=== PATIENT | female | born 1940 | race Caucasian/White ===

== ENCOUNTER 2025-05-21 11:37 | Emergency (ER) | payer MEDICARE | END 2025-05-21 14:45 | disposition home or self-care (01) | LOC: ERS 11:37 | DX: S00.83XA Contusion of other part of head, initial encounter (principal); I50.9 Heart failure, unspecified; E11.9 Type 2 diabetes mellitus without complications; Z55.6 Problems related to health literacy; W18.30XA Fall on same level, unspecified, initial encounter | CPT/HCPCS: 70450; 70486; 72125; 93005 ==

== ENCOUNTER 2025-07-06 17:05 | Inpatient (IN) | payer MEDICARE ==
[2025-07-06 18:36] LABS: ALT (SGPT) 13 U/L (Less than 34); AST (SGOT) 46 U/L (11-34); Albumin 3.2 g/dL (3.1-4.5); Alkaline Phosphatase 87 U/L (40-110); Anion Gap 16 mmol/L (10-20); BUN (Urea Nitrogen) 38 mg/dL (9.8-20.1); Bilirubin, Total 0.2 mg/dL (0.3-1.2); Calc. Creatinine Clearance 0 mL/min (70-130); Calcium 8.8 mg/dL (7.8-10.44); Carbon Dioxide 27 mmol/L (23-31); Chloride 102 mmol/L (98-107); Globulin 3.5 g/dL (2.4-3.5); Glucose 206 mg/dL (83-110); Potassium 4.7 mmol/L (3.5-5.1); Sodium 140 mmol/L (136-145)
[2025-07-06] MEDS ORDERED: Nitroglycerin 2% Ointment 1 INCH/1 GM Packet ONE (19:02)
[2025-07-06] MEDS ORDERED: Aspirin Chewable 81 MG TAB ONE (19:02)
[2025-07-06 19:17] LABS: #Basophils 0.03 10x3/uL (0.0-0.2); #Eosinophils 0.08 10x3/uL (0.0-0.7); #Monocytes 1.25 10x3/uL (0.11-0.59); #Neutrophils 8.05 10x3/uL (1.40-6.50); %Basophils 0.3 % (0.0-1.0); %Eosinophils 0.7 % (0.0-10.0); %Lymphocytes 15.9 % (21.0-51.0); %Monocytes 11.1 % (0.0-10.0); %Neutrophils 71.3 % (42.0-75.0); Hematocrit 36.0 % (36.0-47.0); Hemoglobin 11.1 g/dL (12.0-16.0); Mean Corpuscular Hemoglobin 28.3 pg (27.0-31.0); Mean Corpuscular Volume 91.8 fL (78.0-98.0); Platelet Count 210 10x3/uL (130-400); Red Blood Cell (RBC) Count 3.92 mill/uL (4.20-5.40); White Blood Cell (WBC) Count 11.28 10x3/uL (4.8-10.8)
[2025-07-06] MEDS ORDERED: Enoxaparin 100 MG (1 mL) SYRINGE ONE (19:21)
[2025-07-06] MEDS ORDERED: Nitroglycerin 0.4 MG TAB (25 Tab Bottle) SL PRN (20:51)
[2025-07-06 23:48] LABS: Magnesium 1.9 mg/dL (1.6-2.6)
[2025-07-06 23:52] VITALS: BMI 30.4
[2025-07-07 04:55] LABS: #Basophils 0.03 10x3/uL (0.0-0.2); #Eosinophils 0.10 10x3/uL (0.0-0.7); #Monocytes 1.15 10x3/uL (0.11-0.59); #Neutrophils 4.19 10x3/uL (1.40-6.50); %Basophils 0.4 % (0.0-1.0); %Eosinophils 1.4 % (0.0-10.0); %Lymphocytes 24.0 % (21.0-51.0); %Monocytes 15.9 % (0.0-10.0); %Neutrophils 57.9 % (42.0-75.0); Hematocrit 29.8 % (36.0-47.0); Hemoglobin 10.1 g/dL (12.0-16.0); Mean Corpuscular Hemoglobin 32.3 pg (27.0-31.0); Mean Corpuscular Volume 95.2 fL (78.0-98.0); Platelet Count 189 10x3/uL (130-400); Red Blood Cell (RBC) Count 3.13 mill/uL (4.20-5.40); White Blood Cell (WBC) Count 7.24 10x3/uL (4.8-10.8)
[2025-07-07 05:19] LABS: Anion Gap 11 mmol/L (10-20); BUN (Urea Nitrogen) 27 mg/dL (9.8-20.1); Calc. Creatinine Clearance 44 mL/min (70-130); Calcium 8.6 mg/dL (7.8-10.44); Carbon Dioxide 29 mmol/L (23-31); Cardiac Risk 2.8 (Less than 4.5); Chloride 105 mmol/L (98-107); Cholesterol 116 mg/dl (< 200 Desired); Glucose 69 mg/dL (83-110); HDL Cholesterol 42 mg/dL (>60 Neg Risk); LDL Cholesterol, Calculated 61 mg/dL; Magnesium 1.9 mg/dL (1.6-2.6); Potassium 4.0 mmol/L (3.5-5.1); Sodium 141 mmol/L (136-145); Triglycerides 66 mg/dL (Less than 150)
[2025-07-07] MEDS: Famotidine 20 MG TAB PO SCH (05:34)
[2025-07-07] MEDS: Nitroglycerin 2% Ointment 1 INCH/1 GM Packet TOP SCH (05:35)
[2025-07-07] MEDS: Furosemide 40 MG (4 mL) VIAL SLOW IVP SCH (05:51)
[2025-07-07] MEDS ORDERED: Iopamidol 370 76% 100 ML VIAL ONE (10:46)
[2025-07-07] MEDS: Ipratropium Bromide 2.5 ml Neb NEB SCH (13:45)
[2025-07-07] MEDS: Benzonatate 100 MG CAP PO PRN (20:20)
[2025-07-07] MEDS: Enoxaparin 100 MG (1 mL) SYRINGE SC SCH (20:21)
[2025-07-07] MEDS: Carvedilol 6.25 MG TAB PO SCH (20:22)
[2025-07-07] MEDS ORDERED: Dextrose 50% Abboject 50 ML SYRINGE SLOW IVP PRN (21:45)
[2025-07-07] MEDS ORDERED: Glucagon 1 MG/ML KIT IM PRN (21:45)
[2025-07-07] MEDS: hydrALAZINE 20 MG/ML VIAL SLOW IVP PRN (23:54)
[2025-07-08 00:45] LABS: Bacteria/HPF None Seen HPF (None Seen); CAUTI Indications for Culture Alt mental st,lethar; Glucose, Urine (Dipstick) 100 mg/dL (Negative); Leukocyte Negative Leu/uL (Negative); Protein, Urine (Dipstick) 300 mg/dL (Neg-Trace); RBC/HPF 0-3 HPF (0-3); Specific Gravity, Urine 1.022 (1.002-1.036); WBC/HPF 0-3 HPF (0-3)
[2025-07-08 00:48] LABS: Urine Culture Reflex No No
[2025-07-08] MEDS: hydrALAZINE 20 MG/ML VIAL SLOW IVP PRN (01:02)
[2025-07-08] MEDS ORDERED: Heparin 10,000 UNITS/ 10 ML VIAL ONE (06:22)
[2025-07-08] MEDS ORDERED: Lidocaine 1% (PF) 30 ML VIAL ONE (06:22)
[2025-07-08] MEDS ORDERED: Adenosine 6 mg (2 mL) VIAL ONE (06:22)
[2025-07-08] MEDS ORDERED: Nitroglycerin 50 MG/250 ML BOT 0 ML ONE (06:23)
[2025-07-08 08:14] LABS: Anion Gap 12 mmol/L (10-20); BUN (Urea Nitrogen) 21 mg/dL (9.8-20.1); Calc. Creatinine Clearance 48 mL/min (70-130); Calcium 8.7 mg/dL (7.8-10.44); Carbon Dioxide 26 mmol/L (23-31); Chloride 103 mmol/L (98-107); Glucose 157 mg/dL (83-110); Potassium 4.5 mmol/L (3.5-5.1); Sodium 136 mmol/L (136-145)
[2025-07-08] MEDS: Communication Order-Pharmacy FS ONE (08:39)
[2025-07-08] MEDS: Nitroglycerin 50 MG/250 ML BOT 250 ML IVPB SCH (08:43)
[2025-07-08] MEDS: Enoxaparin 100 MG (1 mL) SYRINGE SC SCH (10:22)
[2025-07-08] MEDS: NIFEdipine XL 30 MG ER.TAB PO SCH ×2 (15:03→21:20)
[2025-07-08] MEDS: Acetaminophen 325 MG TAB PO PRN (23:16)
[2025-07-09 03:55] LABS: Hematocrit 29.0 % (36.0-47.0); Hemoglobin 10.8 g/dL (12.0-16.0); Platelet Count 146 10x3/uL (130-400)
[2025-07-09 04:04] LABS: Anion Gap 13 mmol/L (10-20); BUN (Urea Nitrogen) 32 mg/dL (9.8-20.1); Calc. Creatinine Clearance 37 mL/min (70-130); Calcium 8.7 mg/dL (7.8-10.44); Carbon Dioxide 24 mmol/L (23-31); Chloride 100 mmol/L (98-107); Glucose 329 mg/dL (83-110); Potassium 5.2 mmol/L (3.5-5.1); Sodium 132 mmol/L (136-145)
[2025-07-09] MEDS: Dextrose 50% Abboject 50 ML SYRINGE SLOW IVP SCH (05:24)
[2025-07-09] MEDS: LOKELMA 10 GM PACKET PO SCH (12:58)
[2025-07-09] MEDS: Insulin Glargine 30 UNITS/0.3 ML VIAL SC SCH (13:03)
[2025-07-10 03:14] LABS: #Basophils Less than 0.03 10x3/uL (0.0-0.2); #Eosinophils Less than 0.03 10x3/uL (0.0-0.7); #Monocytes 0.47 10x3/uL (0.11-0.59); #Neutrophils 4.76 10x3/uL (1.40-6.50); %Basophils 0.3 % (0.0-1.0); %Eosinophils 0.0 % (0.0-10.0); %Lymphocytes 17.8 % (21.0-51.0); %Monocytes 7.3 % (0.0-10.0); %Neutrophils 73.8 % (42.0-75.0); Hematocrit 28.0 % (36.0-47.0); Hemoglobin 10.4 g/dL (12.0-16.0); Mean Corpuscular Hemoglobin 35.0 pg (27.0-31.0); Mean Corpuscular Volume 94.3 fL (78.0-98.0); Platelet Count 183 10x3/uL (130-400); Red Blood Cell (RBC) Count 2.97 mill/uL (4.20-5.40); White Blood Cell (WBC) Count 6.45 10x3/uL (4.8-10.8)
[2025-07-10 03:47] LABS: Anion Gap 13 mmol/L (10-20); BUN (Urea Nitrogen) 38 mg/dL (9.8-20.1); Calc. Creatinine Clearance 36 mL/min (70-130); Calcium 8.7 mg/dL (7.8-10.44); Carbon Dioxide 26 mmol/L (23-31); Chloride 99 mmol/L (98-107); Glucose 296 mg/dL (83-110); Potassium 4.3 mmol/L (3.5-5.1); Sodium 134 mmol/L (136-145)
[2025-07-10] MEDS: Insulin Glargine 30 UNITS/0.3 ML VIAL SC SCH ×2 (08:02→08:39)
[2025-07-10] MEDS: Enoxaparin 40 MG (0.4 mL) SYRINGE SC SCH (08:04)
[2025-07-10] MEDS: Carvedilol 6.25 MG TAB PO SCH ×2 (08:39→20:51)
[2025-07-10] MEDS: Mometasone 200 MCG/Formoterol 5 MCG 120 PUFF INHALER INH SCH (18:31)
[2025-07-10] MEDS: Gabapentin 100 MG CAP PO SCH (20:51)
[2025-07-10] MEDS ORDERED: INSULN SQ SCH (21:00)
[2025-07-10] MEDS ORDERED: INSULIN GLULISINE 100 UNIT/ML SQ SCH (21:00)
[2025-07-11 04:07] LABS: Anion Gap 11 mmol/L (10-20); BUN (Urea Nitrogen) 38 mg/dL (9.8-20.1); Calc. Creatinine Clearance 39 mL/min (70-130); Calcium 8.7 mg/dL (7.8-10.44); Carbon Dioxide 27 mmol/L (23-31); Chloride 102 mmol/L (98-107); Glucose 236 mg/dL (83-110); Potassium 4.3 mmol/L (3.5-5.1); Sodium 136 mmol/L (136-145)
[2025-07-11 04:32] LABS: #Basophils Less than 0.03 10x3/uL (0.0-0.2); #Eosinophils Less than 0.03 10x3/uL (0.0-0.7); #Monocytes 0.60 10x3/uL (0.11-0.59); #Neutrophils 4.67 10x3/uL (1.40-6.50); %Basophils 0.3 % (0.0-1.0); %Eosinophils 0.0 % (0.0-10.0); %Lymphocytes 22.4 % (21.0-51.0); %Monocytes 8.7 % (0.0-10.0); %Neutrophils 67.9 % (42.0-75.0); Hematocrit 34.3 % (36.0-47.0); Hemoglobin 10.7 g/dL (12.0-16.0); Mean Corpuscular Hemoglobin 28.4 pg (27.0-31.0); Mean Corpuscular Volume 91.0 fL (78.0-98.0); Platelet Count 202 10x3/uL (130-400); Red Blood Cell (RBC) Count 3.77 mill/uL (4.20-5.40); White Blood Cell (WBC) Count 6.88 10x3/uL (4.8-10.8)
[2025-07-11] MEDS: Aspirin 81 mg Enteric Coated Tablet PO SCH (09:26)
[2025-07-11] MEDS: Cyanocobalamin (Vitamin B-12) 1,000 MCG TAB PO SCH (09:27)
[2025-07-11] MEDS: Furosemide 20 MG TAB PO SCH (09:27)
[2025-07-11] MEDS: Citalopram 20 MG TAB PO SCH (09:27)
[2025-07-11] MEDS: Rosuvastatin 10 MG TAB PO SCH (09:29)
[2025-07-11] MEDS: Insulin Glargine 30 UNITS/0.3 ML VIAL SC SCH (09:30)
[2025-07-12 05:12] LABS: #Basophils Less than 0.03 10x3/uL (0.0-0.2); #Eosinophils Less than 0.03 10x3/uL (0.0-0.7); #Monocytes 0.60 10x3/uL (0.11-0.59); #Neutrophils 4.53 10x3/uL (1.40-6.50); %Basophils 0.3 % (0.0-1.0); %Eosinophils 0.1 % (0.0-10.0); %Lymphocytes 28.1 % (21.0-51.0); %Monocytes 8.3 % (0.0-10.0); %Neutrophils 62.2 % (42.0-75.0); Hematocrit 34.8 % (36.0-47.0); Hemoglobin 11.0 g/dL (12.0-16.0); Mean Corpuscular Hemoglobin 29.1 pg (27.0-31.0); Mean Corpuscular Volume 92.1 fL (78.0-98.0); Platelet Count 238 10x3/uL (130-400); Red Blood Cell (RBC) Count 3.78 mill/uL (4.20-5.40); White Blood Cell (WBC) Count 7.27 10x3/uL (4.8-10.8)
[2025-07-12 05:29] LABS: Anion Gap 13 mmol/L (10-20); BUN (Urea Nitrogen) 40 mg/dL (9.8-20.1); Calc. Creatinine Clearance 40 mL/min (70-130); Calcium 8.5 mg/dL (7.8-10.44); Carbon Dioxide 27 mmol/L (23-31); Chloride 102 mmol/L (98-107); Glucose 141 mg/dL (83-110); Potassium 4.1 mmol/L (3.5-5.1); Sodium 138 mmol/L (136-145)
[2025-07-13 04:48] LABS: #Basophils Less than 0.03 10x3/uL (0.0-0.2); #Eosinophils Less than 0.03 10x3/uL (0.0-0.7); #Monocytes 0.51 10x3/uL (0.11-0.59); #Neutrophils 5.46 10x3/uL (1.40-6.50); %Basophils 0.3 % (0.0-1.0); %Eosinophils 0.0 % (0.0-10.0); %Lymphocytes 24.1 % (21.0-51.0); %Monocytes 6.4 % (0.0-10.0); %Neutrophils 68.2 % (42.0-75.0); Hematocrit 34.9 % (36.0-47.0); Hemoglobin 11.2 g/dL (12.0-16.0); Mean Corpuscular Hemoglobin 28.3 pg (27.0-31.0); Mean Corpuscular Volume 88.1 fL (78.0-98.0); Platelet Count 219 10x3/uL (130-400); Red Blood Cell (RBC) Count 3.96 mill/uL (4.20-5.40); White Blood Cell (WBC) Count 8.00 10x3/uL (4.8-10.8)
[2025-07-13 05:19] LABS: Anion Gap 11 mmol/L (10-20); BUN (Urea Nitrogen) 41 mg/dL (9.8-20.1); Calc. Creatinine Clearance 39 mL/min (70-130); Calcium 8.6 mg/dL (7.8-10.44); Carbon Dioxide 27 mmol/L (23-31); Chloride 102 mmol/L (98-107); Glucose 174 mg/dL (83-110); Potassium 4.2 mmol/L (3.5-5.1); Sodium 136 mmol/L (136-145)
[2025-07-13 16:15] VITALS: BP 149/70; TEMP 98.6
== END 2025-07-13 17:20 | disposition home or self-care (01) | DRG 280 ==
LOC: ERS 17:05 → 2NO 20:24 → IMCU/EMU 07-08 08:28 → 2NO 07-11 07:00
PROVIDERS: ADMIT Student in an Organized Health Care Education/Training Program; ATTEND Internal Medicine
PROC: 4A023N7 Measurement of Cardiac Sampling and Pressure, Left Heart, Percutaneous Approach (ICD-10-PCS; principal; 2025-07-06)
PROC: B2151ZZ Fluoroscopy of Left Heart using Low Osmolar Contrast (ICD-10-PCS; 2025-07-06)
PROC: B2111ZZ Fluoroscopy of Multiple Coronary Arteries using Low Osmolar Contrast (ICD-10-PCS; 2025-07-06)
DX: I16.1 Hypertensive emergency (principal); J96.01 Acute respiratory failure with hypoxia; I21.A1 Myocardial infarction type 2; N17.9 Acute kidney failure, unspecified; E87.1 Hypo-osmolality and hyponatremia; J44.1 Chronic obstructive pulmonary disease with (acute) exacerbation; E78.5 Hyperlipidemia, unspecified; I25.10 Atherosclerotic heart disease of native coronary artery without angina pectoris; I50.9 Heart failure, unspecified; E11.65 Type 2 diabetes mellitus with hyperglycemia; I13.0 Hypertensive heart and chronic kidney disease with heart failure and stage 1 through stage 4 chronic kidney disease, or unspecified chronic kidney disease; N18.9 Chronic kidney disease, unspecified; E11.22 Type 2 diabetes mellitus with diabetic chronic kidney disease; Z95.5 Presence of coronary angioplasty implant and graft; Z86.711 Personal history of pulmonary embolism; Z79.01 Long term (current) use of anticoagulants
CPT/HCPCS: 36415; 36416; 71045; 71275; 74230; 80048; 80053; 80061; 81001; 83036; 83605; 83735; 83880; 84443; 84484; 85014; 85018; 85025; 85049; 87040; 87149; 87426; 93005; 94640; 94760; 96372; J0153; J0360; J1644; J1650; J1815; J2919; J7030; J7512; J7620; J7626; J7644; J7999; Q0162; Q9967